=== PATIENT | female | born 1945 | race Caucasian/White ===

== ENCOUNTER 2019-07-29 12:54 | Outpatient (CLI) | payer MEDICARE, MEDICAID, SELFPAY ==
--- NOTE | ~2019-07-29 | US_ITS ---
CORRECTED REPORT order changed to [id number] corrected ordering doctor to Sg Pierre M.D. 07/29/2019 JM EXAMINATION: US aorta DATE: 07/29/2019 13:48 INDICATION: Abdominal aortic aneurysm. TECHNIQUE: Grayscale, color Doppler, and pulsed Doppler images of the aorta and common iliac arteries were obtained. COMPARISON: Ultrasound 07/26/2017, CT abdomen and pelvis 12/05/2018 FINDINGS: The aorta demonstrates a 4.1 x 4.0 cm fusiform infrarenal aneurysm. The common iliac arteries are normal in caliber. A stent graft is noted. IMPRESSION: 1. 4.1 cm fusiform infrarenal aortic aneurysm status post stent graft placement. The aneurysm measured 4.4 cm on 12/05/2018. Reviewed, dictated and finalized at location A. [employer] ARE[employer] MANAGER MTDD IMPRESSION: 1. 4.1 cm fusiform infrarenal aortic aneurysm status post stent graft placement . The aneurysm measured 4.4 cm on 12/05/2018.
== END 2019-07-29 12:55 | disposition home or self-care (01) ==
PROVIDERS: PCP Family Medicine
DX: I71.4 Abdominal aortic aneurysm, without rupture (principal)
CPT/HCPCS: 76775

== ENCOUNTER 2020-08-03 13:29 | Outpatient (CLI) | payer MEDICARE, MEDICAID, SELFPAY ==
--- NOTE | ~2020-08-03 | US_ITS ---
EXAMINATION: US aorta [facility] DATE: 08/03/2020 13:54 INDICATION: Abdominal aortic aneurysm TECHNIQUE: Grayscale, color Doppler, and pulsed Doppler images of the aorta and common iliac arteries were obtained. COMPARISON: 07/29/2019 FINDINGS: Maximum vascular dimensions are as follows: Proximal aorta: 2.9 cm Mid aorta: 2.5 cm Distal aorta: 4.2 cm Right common iliac artery: 1.7 cm Left common iliac artery: 1.6 cm There is a 4.2 x 3.9 cm fusiform aneurysm of the infrarenal abdominal aorta which previously measured 4.1 x 4 cm. IMPRESSION: 1. Stable fusiform infrarenal abdominal aortic aneurysm. Reviewed, dictated and finalized at location A. ILLMENT SPECIALIST
== END 2020-08-03 13:30 | disposition home or self-care (01) ==
PROVIDERS: PCP Family Medicine
DX: I71.4 Abdominal aortic aneurysm, without rupture (principal)
CPT/HCPCS: 76706

== ENCOUNTER 2020-10-09 07:00 | Emergency (ER) | payer MEDICARE, MEDICAID, SELFPAY ==
--- NOTE | ~2020-10-09 | XR_ITS ---
EXAMINATION: XR chest 2V DATE: 10/09/2020 08:14 INDICATION: Dyspnea TECHNIQUE: frontal and lateral views of the chest were obtained. COMPARISON: Chest radiograph dated 06/08/2018 FINDINGS: The lungs remain clear with no focal airspace opacities, pulmonary edema, pleural effusion or pneumot horax. The cardiomediastinal silhouette is normal. Calcified right hilar and mediastinal lymph nodes consistent with old granulomatous disease. Partially visualized abdominal aortic endovascular stent b eginning at the level of the thoracic hiatus and extending beyond the inferior margin of the field-of -view. Moderate thoracic spondylosis. IMPRESSION: 1. No acute cardiopulmonary disease. Reviewed, dictated and finalized at location A.
--- NOTE | ~2020-10-09 | CT_ITS ---
EXAMINATION: CTA chest PE protocol DATE: 10/09/2020 08:46 INDICATION: Shortness of breath TECHNIQUE: Computed tomography (CT) pulmonary angiogram of the chest was performed with 100 mL Omnipa que-350 intravenous contrast. Additional 3D reconstructions utilizing coronal maximum intensity proje ction (MIP) were performed. Automated exposure control and iterative reconstruction technique were em ployed. The dose-length product was 300.86 mGy-cm. COMPARISON: None FINDINGS: Excellent contrast opacification of the pulmonary arteries. There is mild streak artifact from dense contrast in the superior vena cava and right atrium. Mild scattered respiratory motion artifact which does not significantly limit evaluation. No pulmonary embolism. Mild emphysema. Unchanged small line ar band of discoid atelectasis/scarring in the anterobasilar segment of the right lower lobe. Unchang ed 5 mm likely noncalcified granuloma in the posterior basilar segment of the right lower lobe. A few additional unchanged tiny <3 mm calcified and noncalcified nodules in the right lower lobe likely se quela of chronic infection. No new airspace disease, pulmonary edema or pleural effusion. Heart size is normal. No pericardial effusion. Atherosclerotic coronary artery calcifications. Aortic valve calc ification. Normal caliber thoracic aorta with mild scattered atherosclerotic plaque and no dissection . Partially visualized abdominal aortic endoluminal stent beginning at the level of the thoracic hiat us between the level of the takeoff of the celiac axis and superior mesenteric artery. Calcified righ t hilar lymph nodes along with a few hepatic and splenic calcifications consistent with old granuloma tous disease. No pathologically enlarged thoracic lymphadenopathy. Cholecystectomy clips at the gallb ladder fossa. Moderate thoracic spondylosis. IMPRESSION: 1. No pulmonary embolus or other acute pulmonary disease. 2. Mild emphysema with stable appearance of scattered mild postinfectious residua. 3. Partially visualized abdominal aortic endoluminal stent grafting. Reviewed, dictated and finalized at location A. IMPRESSION: 1. No pulmonary embolus or other acute pulmonary disease. 2. Mild emphysema with stable appearance of scattered mild postinfectious resid ua. 3. Partially visualized abdominal aortic endoluminal stent grafting.
[2020-10-09 07:00] VITALS: BP 126/53; PULSE 85; RESP 20; TEMP 36.9; O2SAT 88
--- NOTE | 2020-10-09 07:08 | ED.SOB ---
HPI - SOB/Dyspnea General Chief Complaint: Shortness of Breath/Dyspnea Stated Complaint: ambulance Source: patient Mode of arrival: EMS Limitations: no limitations History of Present Illness HPI Narrative: patient states that she has had increasing shortness of breath for the last couple of weeks. She has not been able to sleep flat in her bed. She says that she has been having some chest pressure but that is mostly when she is laying flat or takes deep breaths. She continues to smoke 1 pack per day. She has had her COVID injections. She had influenza 3 weeks ago. MD elicited complaint: shortness of breath Onset (ago): week(s) (2 but got worse last PM) Timing: intermittent Severity: moderate Exacerbating factors: lying flat Relieving factors: nothing Associated symptoms: chest pain (pressure) Treatment prior to arrival: none Related Data Home oxygen amount: none Home Medications Medication Instructions Recorded Confirmed albuterol sulfate [Ventolin HFA] 2 puff INHALATION DIRECTED 10/09/20 10/09/20 alprazolam 0.5 mg PO BID PRN 10/09/20 10/09/20 atorvastatin 20 mg PO DAILY 10/09/20 10/09/20 bupropion HCl 150 mg PO DAILY 10/09/20 10/09/20 pantoprazole 20 mg PO DAILY 10/09/20 10/09/20 Allergies Allergy/AdvReac Type Severity Reaction Status Date / Time Penicillins Allergy Unknown Verified 10/09/20 07:22 Review of Systems Review of Systems: All systems reviewed & are unremarkable except as noted in HPI and below Constitutional: Constitutional: Denies chills and Denies fever(s) Eyes: Eyes: Reports no additional eye complaints Cardiovascular: Cardiovascular: Reports chest pain ( some chest pressure with deep breaths.), Denies lightheadedness and Denies palpitations Respiratory: Respiratory: Reports as per HPI Gastrointestinal: Gastrointestinal: Reports no additional gastrointestinal complaints, Denies nausea and Denies vomiting Musculoskeletal: Musculoskeletal: Reports no additional musculoskeletal complaints Integumentary/Breasts: Skin/Breast: Reports system reviewed and no additional complaints, except as docu PMFSH Past Medical History Medical History (Updated 10/09/20 @ 13:50 by Kota Ferris MD) GERD (gastroesophageal reflux disease) Hyperlipidemia Surgical History Surgical History (Updated 10/09/20 @ 13:49 by Kota Ferris MD) H/O endovascular stent graft for abdominal aortic aneurysm H/O hysterectomy with oophorectomy History of appendectomy History of bilateral tubal ligation Social History Social History (Updated 10/09/20 @ 13:50 by Kota Ferris MD) Smoking packs per day: 1 Smoking cigarettes per day: 20.0 Smoking status: Current every day smoker Tobacco type: cigarettes Alcohol intake: never Substance use: never Exam Const: General: healthy appearing, no acute distress and alert Nutritional Appearance: well nourished Orientation/consciousness: patient oriented x3 HENMT: Head: normal to inspection Ears: external ears normal Face and sinus: normal facial exam Mouth: Yes moist mucous membranes Eyes: Conjunctivae: conjunctivae normal Pupils: Equal, round and reactive pupils present EOM: EOMs intact bilaterally Neck: Neck: normal visual inspection Resp: Effort & Inspection: normal respiratory effort and able to speak in complete sentences Auscultation: wheezes expiratory wheezes and throughout ( Scattered) Cardio: Rate: regular rate Rhythm: regular rhythm GI: GI Palp: Yes Soft to palpation, No Tenderness to palpation present (GI) and No Guarding due to palpation present (GI) Auscultation: normal bowel sounds Back/Spine/Pelvis: Cervical Spine: cervical ROM normal Thoracic/Lumbar Spine: thoraco-lumbar ROM normal Skin: General skin exam: normal color Rashes: no rashes Neuro: General: patient oriented x3, moves all extremities, no meningeal signs and no focal motor deficits Speech: normal speech Gait exam (Neuro): Normal gait present Extrem: Gen
--- NOTE | 2020-10-09 07:09 | ECG_ITS ---
Measurements Intervals [place] Rate: 83 P: 36 WA: 144 QRS: 59 QRSD: 90 T: 83 QT: 344 QTc: 405 Interpretive Statements SINUS RHYTHM NONSPECIFIC ST & T-WAVE ABNORMALITY- HIGH LATERAL LEADS BASELINE ARTIFACT- I, II, III, AVR, AVL, AVF, V4 BORDERLINE ECG Electronically Signed On 10-09-2020 22:06:06 CDT by Kailash Goldberg D.O.
[2020-10-09 07:10] VITALS: O2SAT 95
[2020-10-09 07:34] LABS: Basophils Absolute Auto 0.04 K/mm3 (0.00-0.10); Basophils Percent Auto 0.4 % (0.0-1.0); Eosinophils Percent Auto 1.1 % (1.0-6.0); Hematocrit 41.1 % (35.0-42.0); Hemoglobin 13.4 g/dL (11.7-13.8); Immature Granulocyte Absolute 0.02 K/mm3 (0.00-0.00); Immature Granulocyte Percent A 0.2 % (0.0-0.0); Lymphocytes Absolute Auto 1.99 K/mm3 (1.10-4.50); Lymphocytes Percent Auto 21.1 % (18.0-42.0); Mean Corpuscular HGB Conc 32.6 g/dL (32.0-36.0); Mean Corpuscular Hemoglobin 31.9 pg (27.0-31.0); Mean Corpuscular Volume 97.9 fL (78.0-102.0); Mean Platelet Volume 9.7 fl (9.2-11.8); Monocytes Absolute Auto 0.64 K/mm3 (0.10-0.90); Monocytes Percent Auto 6.8 % (2.0-11.0); Neutrophils Absolute Auto 6.6 K/mm3 (1.7-7.2); Neutrophils Percent Auto 70.4 % (50.0-70.0); Platelet Count Result 269 K/mm3 (150-420); Red Cell Distribution Width 12.6 % (11.6-14.4); White Blood Count 9.4 K/mm3 (4.8-10.8)
[2020-10-09 07:50] LABS: Alanine Aminotransferase 22 U/L (14-59); Albumin Level 3.2 g/dL (3.4-5.0); Alkaline Phosphatase 84 U/L (46-116); Anion Gap 4 mmol/L (8-16); Aspartate Amino Transferase 11 U/L (15-37); Bilirubin,Total 0.3 mg/dL (0.00-1.00); Blood Urea Nitrogen 16 mg/dL (7-18); Calcium 9.2 mg/dL (8.5-10.1); Carbon Dioxide 33 mmol/L (21-32); Chloride 98 mmol/L (98-108); Estimated CRCL calculation 40 ml/min; Estimated Glomerular Filt Rate 57; Glucose 152 mg/dL (70-99); Magnesium 1.7 mg/dL (1.8-2.4); Osmolality Calculated 284 mOsm/kg (285-295); Potassium 3.9 mmol/L (3.5-5.1); Sodium 135 mmol/L (136-145); Total Protein 6.7 g/dL (6.4-8.2)
[2020-10-09 07:52] LABS: D Dimer 1.76 mg/L (0.19-0.50)
[2020-10-09 07:53] LABS: BNP 17.6 pg/mL (0-100)
--- NOTE | 2020-10-09 08:01 | PC.NURSE ---
report to GILLIAN Osorio
[2020-10-09 08:02] LABS: CRP 0.7 mg/dL (0.0-0.9)
[2020-10-09 08:49] VITALS: BP 126/78; PULSE 85; O2SAT 100
[2020-10-09] MEDS: methylPREDNISolone SOD SUCC 125 MG VIAL IV PUSH (09:45)
[2020-10-09] MEDS: IPRATROPIUM 0.5 MG/ALBUTEROL SULFATE 2.5 MG AMPUL.NEB 3 ML INHALATION (09:45)
[2020-10-09 09:50] VITALS: PULSE 85; RESP 17; O2SAT 100
[2020-10-09 10:02] VITALS: PULSE 86; O2SAT 99
[2020-10-09 10:25] VITALS: BP 125/72; O2SAT 99
== END 2020-10-09 10:26 | disposition home or self-care (01) ==
PROVIDERS: Emergency Provider Emergency Medicine
DX: J44.1 Chronic obstructive pulmonary disease with (acute) exacerbation (principal); K21.9 Gastro-esophageal reflux disease without esophagitis; E78.5 Hyperlipidemia, unspecified; F17.200 Nicotine dependence, unspecified, uncomplicated
CPT/HCPCS: 36415; 71046; 71275; 80053; 83735; 83880; 84484; 85025; 85380; 86140; 93005; 94640; 96374; 99283; 99284; J2930; Q9967

== ENCOUNTER 2021-11-08 13:04 | Emergency (ER) | payer OTHER, SELFPAY ==
[2021-11-08 13:20] VITALS: BP 132/85; PULSE 101; RESP 16; TEMP 35.9; O2SAT 93
--- NOTE | 2021-11-08 13:30 | ED.ANIMALBIT ---
HPI - Animal Bite General Chief Complaint: Animal Bite Stated Complaint: SPIDER BITE Time Seen by Provider: 11/08/21 13:32 Source: patient History of Present Illness HPI narrative: 76-year-old smoker with a history of COPD, AAA status post endovascular stent presents to the ER with -- left arm swelling measuring 5 cmX8 cm. itchy. She thinks is related to a bite. she 1st noticed it yesterday. No shortness of breath or lightheadedness. no other skin rash. patient is not up-to-date on tetanus immunization MD complaint: other ( Insect bite) Onset (ago): day(s) ( First noted yesterday) Animal: other ( insect bite) Location - Extremities: Left: arm Associated symptoms: none Related Data Patient tetanus UTD: No Home Medications Medication Instructions Recorded Confirmed albuterol sulfate [Ventolin HFA] 2 puff INHALATION DIRECTED 10/09/20 10/09/20 alprazolam 0.5 mg PO BID PRN 10/09/20 10/09/20 atorvastatin 20 mg PO DAILY 10/09/20 10/09/20 bupropion HCl 150 mg PO DAILY 10/09/20 10/09/20 pantoprazole 20 mg PO DAILY 10/09/20 10/09/20 Allergies Allergy/AdvReac Type Severity Reaction Status Date / Time Penicillins Allergy Swelling Verified 11/08/21 13:22 Review of Systems Review of Systems: All systems reviewed & are unremarkable except as noted in HPI and below Constitutional: Constitutional: Reports as per HPI and Reports no additional constitutional complaints Eyes: Eyes: Reports as per HPI and Reports no additional eye complaints ENT: Reports system reviewed and no additional complaints, except as documented and Reports as per HPI Cardiovascular: Cardiovascular: Reports as per HPI and Reports no additional cardiovascular complaints Respiratory: Respiratory: Reports as per HPI, Reports no additional respiratory complaints, Reports cough and Reports dyspnea Gastrointestinal: Gastrointestinal: Reports as per HPI and Reports no additional gastrointestinal complaints Genitourinary: Genitourinary: Reports no additional female genitourinary complaints Musculoskeletal: Musculoskeletal: Reports no additional musculoskeletal complaints and Reports as per HPI Integumentary/Breasts: Comments: left arm swelling, redness and itching Neurologic: Reports system reviewed and no additional complaints, except as documented and Reports as per HPI Psychiatric: Psychiatric: Reports no additional psychiatric complaints and Reports as per HPI Endocrine: Endocrine: Reports no additional endocrine complaints and Reports as per HPI Hematologic/Lymphatic: Hematologic/Lymphatic: Reports no additional hematologic/lymphatic complaints and Reports as per HPI Allergic/Immunologic: Allergic/Immunologic: Reports no additional allergic/immunologic complaints and Reports as per HPI [facility] Past Medical History Medical History GERD (gastroesophageal reflux disease) Hyperlipidemia Surgical History Surgical History H/O endovascular stent graft for abdominal aortic aneurysm H/O hysterectomy with oophorectomy History of appendectomy History of bilateral tubal ligation Social History Social History Smoking packs per day: 1 Smoking cigarettes per day: 20.0 Smoking status: Current every day smoker Tobacco type: cigarettes Alcohol intake: never Substance use: never Exam Const: General: no acute distress and alert Orientation/consciousness: patient oriented x3 HENMT: Head: normal to inspection Face and sinus: normal facial exam Eyes: Conjunctivae: conjunctivae normal Pupils: Equal, round and reactive pupils present EOM: EOMs intact bilaterally Neck: Neck: normal visual inspection and no lymphadenopathy Chest: Chest palpation & inspection: normal inspection of the chest Resp: Auscultation: rhonchi and diminished lung sounds Cardio: Rate: regular ra
[2021-11-08] MEDS: methylPREDNISolone SOD SUCC 125 MG VIAL 40 MG IM (13:49)
[2021-11-08] MEDS: TETANUS,DIPHTHERIA,AC PERTUSSIS ADULT 0.5 ML (ADACEL) IM (13:50)
[2021-11-08 13:56] VITALS: BP 132/85; PULSE 101; RESP 16; TEMP 35.9; O2SAT 93
== END 2021-11-08 14:03 | disposition home or self-care (01) ==
PROVIDERS: Emergency Provider Internal Medicine Critical Care Medicine; PCP Family Medicine
DX: S40.862A Insect bite (nonvenomous) of left upper arm, initial encounter (principal); W57.XXXA Bitten or stung by nonvenomous insect and other nonvenomous arthropods, initial encounter
CPT/HCPCS: 90471; 90715; 96372; 99283; J2930

== ENCOUNTER 2022-06-11 07:52 | Emergency (ER) | payer OTHER, SELFPAY ==
[2022-06-11] VITALS (26 sets, daily range): BP systolic 126–179; BP diastolic 67–96; PULSE 82–97; RESP 16; TEMP 36.2–36.3; O2SAT 90–96
--- NOTE | ~2022-06-11 | XR_ITS ---
EXAMINATION: XR abdomen/kub 1V DATE: 06/11/2022 08:16 INDICATION: Constipation. TECHNIQUE: A supine view of the abdomen was obtained. COMPARISON: CT abdomen and pelvis 12/05/2018 FINDINGS: There are no dilated loops of bowel. There is a moderate volume of stool in the colon. Surg ical clips in the right upper quadrant are likely from cholecystectomy. There is a stent graft in abd ominal aorta and the common iliac arteries. There is a phlebolith in right pelvis. IMPRESSION: 1. Nonobstructive bowel gas pattern. Reviewed, dictated and finalized at location A. K MASON
--- NOTE | ~2022-06-11 | CT_ITS ---
EXAMINATION: CT abdomen pelvis wo con DATE: 06/11/2022 10:45 INDICATION: Left flank pain. Left lower quadrant abdominal pain. TECHNIQUE: Computed tomography (CT) of the abdomen and pelvis was performed without intravenous contr ast. Automated exposure control and iterative reconstruction technique were employed. The dose-length product was 388.37 mGy-cm. COMPARISON: CT abdomen and pelvis 12/05/2018 FINDINGS: The visualized portions of the lung bases demonstrate mild atelectasis. Emphysema is noted. No pleural effusion. The heart size is normal. No pericardial effusion. Calcifications in the liver and spleen are consistent with old granulomatous disease. There are changes of cholecystectomy. The p ancreas, adrenal glands, and right kidney are normal. There is a 4.4 cm cyst in left kidney. There is no urolithiasis. There is diverticulosis of the colon without evidence of diverticulitis. There are no dilated loops of bowel. The appendix is not visualized. There is a 4.0 cm fusiform aneurysm of inf rarenal aorta with stent graft in the aorta and common iliac arteries. There are no pathologically en larged lymph nodes. There is no free intraperitoneal fluid. There is a supraumbilical ventral hernia containing fat. There is mild thoracolumbar spondylosis. IMPRESSION: 1. No urolithiasis. 2. 4.0 cm fusiform aneurysm of infrarenal aorta with stent graft in expected position, improved from 4.4 cm on 12/05/2018. 3. Supraumbilical ventral hernia containing fat. Reviewed, dictated and finalized at location A. IFIED HEALTH EDUCATION SPECIALIST IMPRESSION: 1. No urolithiasis. 2. 4.0 cm fusiform aneurysm of infrarenal aorta with stent graft in expected po sition, improved from 4.4 cm on 12/05/2018. 3. Supraumbilical ventral hernia containing fat.
--- NOTE | 2022-06-11 07:53 | ED.ABDPAIN ---
HPI - Abdominal Pain General Chief Complaint: Urogenital-Female Stated Complaint: Ambulance Time Seen by Provider: 06/11/22 07:53 Source: patient, EMS and RN notes reviewed Mode of arrival: EMS Limitations: no limitations History of Present Illness HPI narrative: patient states that she has had left flank pain in left lower quadrant abdominal pain for the last 3 days. She has not had a bowel movement in 2 days. She denies any fever chills. She denies any nausea vomiting. MD elicited complaint: flank pain Pertinent past history: none Onset (ago): day(s) (3) Pain Consistency: intermittent Location: L flank Severity: severe Quality: stabbing and sharp Radiation: LLQ Migration to: no migration Exacerbating factors: eating Relieving factors: nothing Associated symptoms: constipation (2 days) Related Data Home Medications Medication Instructions Recorded Confirmed albuterol sulfate 90 mcg/actuation 2 puff inhalation DIRECTED 10/09/20 10/09/20 aerosol inhaler (Ventolin HFA) alprazolam 0.5 mg tablet 0.5 mg PO BID PRN Anxiety 10/09/20 10/09/20 atorvastatin 20 mg tablet 20 mg PO DAILY 10/09/20 10/09/20 bupropion HCl 150 mg 24 hr tablet, 150 mg PO DAILY 10/09/20 10/09/20 extended release pantoprazole 20 mg tablet,delayed 20 mg PO DAILY 10/09/20 10/09/20 release Allergies Allergy/AdvReac Type Severity Reaction Status Date / Time Penicillins Allergy Swelling Verified 06/11/22 08:05 soybean Allergy Hives Verified 06/11/22 08:05 aspirin AdvReac Abdominal Verified 06/11/22 08:05 Pain Review of Systems Review of Systems: All systems reviewed & are unremarkable except as noted in HPI and below Constitutional: Constitutional: Denies chills and Denies fever(s) PMFSH Past Medical History Medical History (Updated 06/11/22 @ 11:29 by Kota Ferris MD) COPD (chronic obstructive pulmonary disease) GERD (gastroesophageal reflux disease) Hyperlipidemia Overactive bladder Surgical History Surgical History H/O endovascular stent graft for abdominal aortic aneurysm H/O hysterectomy with oophorectomy History of appendectomy History of bilateral tubal ligation Social History Social History Smoking packs per day: 1 Smoking cigarettes per day: 20.0 Smoking status: Current every day smoker Tobacco type: cigarettes Alcohol intake: never Substance use: never Exam Const: General: healthy appearing, no acute distress and alert Nutritional Appearance: well nourished Orientation/consciousness: patient oriented x3 Limitations: no limitations HENMT: Head: normal to inspection Ears: external ears normal Face and sinus: normal facial exam Mouth: Yes moist mucous membranes Eyes: Conjunctivae: conjunctivae normal EOM: EOMs intact bilaterally Neck: Neck: normal visual inspection Resp: Effort & Inspection: normal respiratory effort Auscultation: clear to auscultation bilaterally Cardio: Rate: regular rate Rhythm: regular rhythm GI: GI Palp: Yes Soft to palpation, Yes Tenderness to palpation present (GI) ( left side mild) and No Guarding due to palpation present (GI) Auscultation: normal bowel sounds Back/Spine/Pelvis: Back: CVA tenderness ( moderate on the left) Cervical Spine: cervical ROM normal Thoracic/Lumbar Spine: thoraco-lumbar ROM normal Skin: General skin exam: normal color Neuro: General: patient oriented x3, moves all extremities, no focal motor deficits and CN's II-XI intact bilaterally Speech: normal speech Gait exam (Neuro): Normal gait present Extrem: General: normal to inspection and no clubbing, cyanosis or edema Psych: Mental Status: mental status grossly normal Affect: normal affect Attitude: cooperative Course Vital Signs Vital signs: Vital Signs Temperature 36.2 C L 06/11/22 07:57 Pulse Rate 95 06/11/22 07:57 Respiratory Rate 16 06/11/22 07:5
[2022-06-11 08:08] LABS: Basophils Absolute Auto 0.05 K/mm3 (0.00-0.10); Basophils Percent Auto 0.5 % (0.0-1.0); Eosinophils Absolute Auto 0.13 K/mm3 (0.02-0.50); Eosinophils Percent Auto 1.2 % (1.0-6.0); Hemoglobin 12.3 g/dL (11.7-13.8); Immature Granulocyte Absolute 0.04 K/mm3 (0.00-0.00); Immature Granulocyte Percent A 0.4 % (0.0-0.0); Lymphocytes Absolute Auto 2.13 K/mm3 (1.10-4.50); Lymphocytes Percent Auto 19.5 % (18.0-42.0); Mean Corpuscular HGB Conc 34.2 g/dL (32.0-36.0); Mean Corpuscular Hemoglobin 32.5 pg (27.0-31.0); Mean Platelet Volume 9.7 fl (9.2-11.8); Monocytes Absolute Auto 0.84 K/mm3 (0.10-0.90); Monocytes Percent Auto 7.7 % (2.0-11.0); Neutrophils Absolute Auto 7.7 K/mm3 (1.7-7.2); Neutrophils Percent Auto 70.7 % (50.0-70.0); Platelet Count Result 264 K/mm3 (150-420); Red Blood Count 3.79 M/mm3 (4.20-5.40); Red Cell Distribution Width 12.1 % (11.6-14.4); White Blood Count 10.9 K/mm3 (4.8-10.8)
--- NOTE | 2022-06-11 08:10 | PC.NURSE ---
Xray at bedside
--- NOTE | 2022-06-11 08:20 | PC.NURSE ---
Urine delivered to lab.
[2022-06-11 08:23] LABS: Alanine Aminotransferase 19 U/L (14-59); Albumin Level 3.3 g/dL (3.4-5.0); Alkaline Phosphatase 80 U/L (46-116); Anion Gap 5 mmol/L (8-16); Aspartate Amino Transferase 11 U/L (15-37); Bilirubin,Total 0.2 mg/dL (0.00-1.00); Blood Urea Nitrogen 14 mg/dL (7-18); Carbon Dioxide 31 mmol/L (21-32); Chloride 101 mmol/L (98-108); Estimated CRCL calculation 33 ml/min; Estimated Glomerular Filt Rate 48; Glucose 157 mg/dL (70-99); Lipase 31 U/L (16-77); Osmolality Calculated 287 mOsm/kg (285-295); Potassium 4.2 mmol/L (3.5-5.1); Sodium 137 mmol/L (136-145); Total Protein 6.9 g/dL (6.4-8.2)
[2022-06-11 08:25] LABS: Lactic Acid Reflex 1.4 mmol/L (0.4-2.0)
[2022-06-11 08:26] LABS: CRP < 0.5 mg/dL (0.0-0.9)
[2022-06-11 08:28] LABS: Add Urine Microscopic? NO; Appearance Urine Clear (Clear); Bilirubin Urine Negative (Negative); Blood Urine Negative (Negative); Color Urine Yellow (Yellow); Glucose Urine UA Negative (Negative); Ketones Urine Negative (Negative); Leukocyte Esterase Ur Negative LEU/UL (Negative); Nitrate Urine Negative (Negative); Protein Urine Negative (Negative); Specific Grav Ur >= 1.030 (1.010-1.020); Urobilinogen Urine 0.2 mg/dL (0.2-1.0)
[2022-06-11] MEDS: KETOROLAC 15 MG/ML VIAL (*BKC) IV PUSH (08:45)
--- NOTE | 2022-06-11 11:04 | PC.NURSE ---
Spoke with Acacia, patient's daughter, with permission of patient. Phone number: [phone]
== END 2022-06-11 11:53 | disposition home or self-care (01) ==
PROVIDERS: Emergency Provider Emergency Medicine
DX: K59.00 Constipation, unspecified (principal); E78.5 Hyperlipidemia, unspecified; J44.9 Chronic obstructive pulmonary disease, unspecified; F17.210 Nicotine dependence, cigarettes, uncomplicated
CPT/HCPCS: 36415; 74018; 74176; 80053; 81003; 83605; 83690; 85025; 86140; 96374; 99284; J1885

== ENCOUNTER 2022-06-17 07:05 | Emergency (ER) | payer OTHER, SELFPAY ==
--- NOTE | ~2022-06-17 | CT_ITS ---
EXAMINATION: CT abd pelvis lumbar wo con DATE: 06/17/2022 07:57 INDICATION: Back pain TECHNIQUE: Computed tomography (CT) of the abdomen, pelvis and lumbar spine was performed without int ravenous contrast. Automated exposure control and iterative reconstruction technique were employed. T he dose-length product was 376.90 mGy-cm. COMPARISON: 06/11/2022 FINDINGS: Abdomen and pelvis: Mild bibasilar atelectasis. No pericardial or pleural effusion. Hepatic and splenic calcific lesions consistent with old granulomatous disease. Cholecystectomy clips the gallbladder fossa. Pancreas, rig ht adrenal gland and bilateral adrenal glands are normal. Unchanged 4.4 cm left renal cyst. Additiona l subcentimeter hypodense proteinaceous/hemorrhagic cyst in the left kidney. Fusiform infrarenal abdo hiram aortic aneurysm which measures up to 4.0 x 3.7 cm in maximal diameter with aortobiiliac endolum inal stent which begins at the level of the celiac axis and extends to the bifurcation of the common iliac arteries. There is moderate colonic diverticulosis with a sigmoid predominance. There is no ad jacent inflammatory change to suggest diverticulitis. There is some fluid in the proximal colon consi stent with diarrhea. The appendix is not visualized. No pericecal inflammatory change to suggest acut e appendicitis. Small bowel is normal with no obstruction. Bladder is normal. The uterus is not ident ified and has likely been surgically resected. No free intraperitoneal gas or fluid. No pathologicall y enlarged abdominal or pelvic lymphadenopathy. Small fat-containing supraumbilical ventral hernia. Lumbar spine: Alignment is normal. Unchanged minimal likely physiologic anterior wedging at T11 and T12. Lumbar leelee tebral body heights are normal. Mild disc height loss at T10-T11 and L2-L3. There are disc bulges res ulting in mild central canal stenosis at L2-L3 through L5-S1. Severe facet osteoarthritis bilaterally at L4-L5 and on the left at L5-S1. Mild facet osteoarthritis at T10-T11 through T12-L1 and moderate facet osteoarthritis the remaining lumbar facet joints neural foraminal stenosis, moderate on the lef t at L3-L4 and bilaterally at L5-S1 lumbar levels. IMPRESSION: 1. Fluid throughout the proximal colon consistent with diarrhea. Correlate clinically for enteritis. No urolithiasis or other acute intra-abdominal/pelvic process. 2. Unchanged 4.0 cm fusiform infrarenal abdominal aortic aneurysm with expected appearance of an aort obiiliac endoluminal stent graft. 3. Mild lumbar spondylosis without acute osseous abnormality. 4. Small supraumbilical fat-containing ventral hernia. Reviewed, dictated and finalized at location A. EXPERT IMPRESSION: 1. Fluid throughout the proximal colon consistent with diarrhea. Correlate clin ically for enteritis. No urolithiasis or other acute intra-abdominal/pelvic pro cess. 2. Unchanged 4.0 cm fusiform infrarenal abdominal aortic aneurysm with expected appearance of an aortobiiliac endoluminal stent graft. 3. Mild lumbar spondylosis without acute osseous abnormality. 4. Small supraumbilical fat-containing ventral hernia.
[2022-06-17 07:06] VITALS: BP 183/74; PULSE 84; RESP 16; TEMP 36.4; O2SAT 95
--- NOTE | 2022-06-17 07:18 | ED.GENADULT ---
HPI - General Adult General Chief complaint: Back Pain/Injury Stated complaint: AMBULANCE Time Seen by Provider: 06/17/22 07:11 History of Present Illness HPI narrative: Keshia is a 76F with a PMH of GERD, HLD, COPD that presented to the ED with left low back pain by EMS. She started having back pain a little over a week ago. It is a stabbing left low back/flank pain that is non-radiating. She was seen in the ED here on 06/11 and diagnosed with constipation. She has taken laxatives and had a small BM. She denies loss of bowel/bladder control, vomiting, fevers, CP, dyspnea, dysuria and hematuria. Related Data Home Medications Medication Instructions Recorded Confirmed albuterol sulfate 90 mcg/actuation 2 puff inhalation DIRECTED 10/09/20 06/17/22 aerosol inhaler (Ventolin HFA) alprazolam 0.5 mg tablet 0.5 mg PO BID PRN Anxiety 10/09/20 06/17/22 atorvastatin 20 mg tablet 20 mg PO DAILY 10/09/20 06/17/22 bupropion HCl 150 mg 24 hr tablet, 150 mg PO DAILY 10/09/20 06/17/22 extended release pantoprazole 20 mg tablet,delayed 20 mg PO DAILY 10/09/20 06/17/22 release Allergies Allergy/AdvReac Type Severity Reaction Status Date / Time erythromycin base [Eryc] Allergy Intermediate Verified 06/11/22 15:39 sertraline [Zoloft] Allergy Intermediate Verified 06/11/22 15:39 Penicillins Allergy Swelling Verified 06/11/22 15:39 soybean Allergy Hives Verified 06/11/22 15:39 aspirin AdvReac Abdominal Verified 06/11/22 15:39 Pain Review of Systems Review of Systems: All systems reviewed & are unremarkable except as noted in HPI and below PMFSH Past Medical History Medical History COPD (chronic obstructive pulmonary disease) GERD (gastroesophageal reflux disease) Hyperlipidemia Overactive bladder Surgical History Surgical History H/O endovascular stent graft for abdominal aortic aneurysm H/O hysterectomy with oophorectomy History of appendectomy History of bilateral tubal ligation Family History Family History Sister Family history of type 2 diabetes mellitus Social History Social History Smoking packs per day: 1 Smoking cigarettes per day: 20.0 Smoking status: Current every day smoker Tobacco type: cigarettes Alcohol intake: never Substance use: never Exam Const: General: healthy appearing and alert Other: was originally leaning over the bed afte she got off the stretcher HENMT: Head: normal to inspection Ears: external ears normal Face/Nose/Sinus: Normal external nose present Mouth: Yes Normal oral and palatal mucosa present and Yes moist mucous membranes Eyes: Conjunctivae: conjunctivae normal Pupils: Equal, round and reactive pupils present Neck: Neck: normal visual inspection Chest: Chest palpation & inspection: normal inspection of the chest Resp: Effort & Inspection: normal respiratory effort Auscultation: clear to auscultation bilaterally Cardio: Rate: regular rate Rhythm: regular rhythm GI: Inspection: non-distended GI Palp: Yes Soft to palpation Auscultation: normal bowel sounds : Other: left sided CVA tenderness Skin: General skin exam: normal color Neuro: General: patient oriented x3 and moves all extremities Cranial nerves: Yes Nystagmus not present Extrem: General: normal to inspection Psych: Mental Status: mental status grossly normal Course Course Emergency Course: Orderd labs, CT and gave toradol for pain Labs showed a slightly elevated WBC, and chemistries showed a slightly decreased GFR at 56. Preliminary CT showed CT abd&pelvis showed possible enterocolitis, possible non-obstructing bilateral distal ureteral punctate stones versus adjacent extra ureteral calcifications with no other acute abnormality CT lumbar spin
[2022-06-17] MEDS: KETOROLAC 30 MG/ML VIAL (*BKC) IV PUSH (07:30)
[2022-06-17 07:36] LABS: Basophils Absolute Auto 0.06 K/mm3 (0.00-0.10); Basophils Percent Auto 0.5 % (0.0-1.0); Eosinophils Absolute Auto 0.09 K/mm3 (0.02-0.50); Eosinophils Percent Auto 0.8 % (1.0-6.0); Hematocrit 35.9 % (35.0-42.0); Hemoglobin 12.1 g/dL (11.7-13.8); Immature Granulocyte Absolute 0.05 K/mm3 (0.00-0.00); Immature Granulocyte Percent A 0.4 % (0.0-0.0); Lymphocytes Absolute Auto 2.05 K/mm3 (1.10-4.50); Lymphocytes Percent Auto 18.1 % (18.0-42.0); Mean Corpuscular HGB Conc 33.7 g/dL (32.0-36.0); Mean Corpuscular Hemoglobin 32.3 pg (27.0-31.0); Mean Corpuscular Volume 95.7 fL (78.0-102.0); Mean Platelet Volume 9.5 fl (9.2-11.8); Monocytes Absolute Auto 0.76 K/mm3 (0.10-0.90); Monocytes Percent Auto 6.7 % (2.0-11.0); Neutrophils Absolute Auto 8.3 K/mm3 (1.7-7.2); Neutrophils Percent Auto 73.5 % (50.0-70.0); Platelet Count Result 272 K/mm3 (150-420); Red Blood Count 3.75 M/mm3 (4.20-5.40); Red Cell Distribution Width 12.3 % (11.6-14.4); White Blood Count 11.3 K/mm3 (4.8-10.8)
--- NOTE | 2022-06-17 07:43 | PC.NURSE ---
pt to xray per stretcher.
[2022-06-17 07:50] LABS: Alanine Aminotransferase 16 U/L (14-59); Albumin Level 3.4 g/dL (3.4-5.0); Alkaline Phosphatase 71 U/L (46-116); Anion Gap 5 mmol/L (8-16); Aspartate Amino Transferase 13 U/L (15-37); Bilirubin,Total 0.3 mg/dL (0.00-1.00); Blood Urea Nitrogen 15 mg/dL (7-18); Calcium 8.6 mg/dL (8.5-10.1); Carbon Dioxide 31 mmol/L (21-32); Chloride 98 mmol/L (98-108); Estimated CRCL calculation 37 ml/min; Estimated Glomerular Filt Rate 56; Glucose 138 mg/dL (70-99); Lipase 30 U/L (16-77); Osmolality Calculated 280 mOsm/kg (285-295); Potassium 4.4 mmol/L (3.5-5.1); Sodium 134 mmol/L (136-145); Total Protein 6.8 g/dL (6.4-8.2)
[2022-06-17 07:52] LABS: Lactic Acid Reflex 1.3 mmol/L (0.4-2.0)
[2022-06-17] MEDS: CYCLOBENZAPRINE HCL 10 MG TABLET PO (08:08)
[2022-06-17] MEDS: MORPHINE SULFATE (*CRX) 4 MG/ML INJ IV PUSH (08:10)
[2022-06-17 08:22] LABS: Add Urine Microscopic? NO; Appearance Urine Clear (Clear); Bilirubin Urine Negative (Negative); Blood Urine Negative (Negative); Color Urine Light Yellow (Yellow); Glucose Urine UA Negative (Negative); Ketones Urine Negative (Negative); Leukocyte Esterase Ur Negative LEU/UL (Negative); Nitrate Urine Negative (Negative); Protein Urine Negative (Negative); Specific Grav Ur 1.025 (1.010-1.020); Urobilinogen Urine 0.2 mg/dL (0.2-1.0)
[2022-06-17 08:26] LABS: Amphetamine Screen Urine Negative (Negative); Barbiturate Screen Urine Negative (Negative); Benzodiazepines Screen Urine Positive (Negative); Cannabinoid Screen Urine Negative (Negative); Cocaine Screen Urine Negative (Negative); Methadone Screen Urine Negative (Negative); Opiate Screen Urine Negative (Negative); Phencyclidine Screen Urine Negative (Negative)
--- NOTE | 2022-06-17 09:29 | PC.NURSE ---
spoke with daughter, mary , will call pt paperhanger assistant to pick mother up. awaiting arrival.
[2022-06-17 09:32] VITALS: BP 148/94; PULSE 78; RESP 20; TEMP 36.6; O2SAT 93
== END 2022-06-17 09:33 | disposition home or self-care (01) ==
PROVIDERS: Emergency Provider Family Medicine; PCP Family Medicine
DX: N20.1 Calculus of ureter (principal); M54.50 Low back pain, unspecified; J44.9 Chronic obstructive pulmonary disease, unspecified; E78.5 Hyperlipidemia, unspecified; F17.210 Nicotine dependence, cigarettes, uncomplicated; Z79.899 Other long term (current) drug therapy
CPT/HCPCS: 36415; 72131; 74176; 80053; 80307; 81003; 83605; 83690; 85025; 96374; 96375; 99284; A9270; J1885; J2270

== ENCOUNTER 2022-06-27 14:34 | Outpatient (CLI) | payer OTHER, SELFPAY ==
[2022-06-27 14:52] LABS: Hematocrit 36.6 % (35.0-42.0); Hemoglobin 12.5 g/dL (11.7-13.8); Mean Corpuscular HGB Conc 34.2 g/dL (32.0-36.0); Mean Corpuscular Hemoglobin 32.6 pg (27.0-31.0); Mean Corpuscular Volume 95.3 fL (78.0-102.0); Mean Platelet Volume 9.2 fl (9.2-11.8); Platelet Count Result 277 K/mm3 (150-420); Red Blood Count 3.84 M/mm3 (4.20-5.40); Red Cell Distribution Width 12.3 % (11.6-14.4); White Blood Count 12.5 K/mm3 (4.8-10.8)
[2022-06-27 15:07] LABS: Alanine Aminotransferase 13 U/L (14-59); Albumin Level 3.7 g/dL (3.4-5.0); Alkaline Phosphatase 73 U/L (46-116); Anion Gap 6 mmol/L (8-16); Aspartate Amino Transferase 11 U/L (15-37); Bilirubin,Total 0.4 mg/dL (0.00-1.00); Blood Urea Nitrogen 9 mg/dL (7-18); Carbon Dioxide 29 mmol/L (21-32); Chloride 97 mmol/L (98-108); Cholesterol 285 mg/dL (0-200); Estimated Glomerular Filt Rate 53; Glucose 118 mg/dL (70-99); HDL Direct 47 mg/dL (40-60); LDL Cholesterol Calculated 174 mg/dL (<130); Osmolality Calculated 273 mOsm/kg (285-295); Potassium 4.3 mmol/L (3.5-5.1); Sodium 132 mmol/L (136-145); Total Protein 7.3 g/dL (6.4-8.2); Triglycerides 321 mg/dL (0-150)
== END 2022-06-27 14:35 | disposition home or self-care (01) ==
PROVIDERS: PCP Family Medicine; Visit Provider Family Medicine
DX: K21.9 Gastro-esophageal reflux disease without esophagitis (principal); E78.5 Hyperlipidemia, unspecified; N20.1 Calculus of ureter
CPT/HCPCS: 36415; 80053; 80061; 82365; 85027; 88300

== ENCOUNTER 2022-08-01 12:54 | Outpatient (CLI) | payer OTHER, SELFPAY ==
--- NOTE | ~2022-08-01 | US_ITS ---
Ultrasound of the Abdominal Aorta INDICATION: Abdominal aortic aneurysm TECHNIQUE: Grayscale, color Doppler, and pulsed Doppler images of the aorta and common iliac arteries were obtained. COMPARISON: 08/03/2020 FINDINGS: Maximum vascular dimensions are as follows: Proximal aorta: 3.6 cm Mid aorta: 4.1 cm Distal aorta: 4.9 cm Right common iliac artery: 1.9 cm Left common iliac artery: 1.6 cm Overall, probably no change from prior exam. IMPRESSION: Fusiform abdominal aortic aneurysm is mildly increased in size from prior exam, now measuring up to 4 .9 cm in maximum diameter Reviewed, dictated and finalized at location . CE SYSTEM ANALYST IMPRESSION: Fusiform abdominal aortic aneurysm is mildly increased in size from prior exam, now measuring up to 4.9 cm in maximum diameter
== END 2022-08-01 12:55 | disposition home or self-care (01) ==
LOC: CHSIMG 12:59
DX: I71.40 Abdominal aortic aneurysm, without rupture, unspecified (principal)
CPT/HCPCS: 76775

== ENCOUNTER 2025-04-08 10:07 | Emergency (ER) | payer OTHER, MEDICARE, SELFPAY ==
[2025-04-08] VITALS (13 sets, daily range): BP systolic 93–131; BP diastolic 43–91; PULSE 64–78; RESP 16–20; TEMP 36.4–36.6; O2SAT 99–100
--- NOTE | ~2025-04-08 | XR_ITS ---
EXAMINATION: XR chest 1V portable DATE: 04/08/2025 11:00 INDICATION: Shortness of breath TECHNIQUE: frontal view of the chest was obtained. COMPARISON: Chest radiograph and CT dated 10/09/2020 FINDINGS: Lungs appear hyperexpanded likely due to lordotic plane of imaging. No focal airspace opacities, pulmonary edema, pleural effusion or pneumothorax. The cardiomediastinal silhouette is normal. IMPRESSION: 1. No acute cardiopulmonary disease. Reviewed, dictated and finalized at location A.
--- NOTE | 2025-04-08 10:20 | ED_ITS ---
HPI - SOB/Dyspnea General Chief Complaint: Shortness of Breath/Dyspnea Stated Complaint: shortness of breath Time Seen by Provider: 04/08/25 10:10 History of Present Illness HPI Narrative: 79-year-old white female with history of COPD, hypertension, hyperlipidemia, GERD, long-standing tobacco use, home oxygen dependent on 2 L nasal cannula 24 hours a day presents with about a week-long history of increasing shortness of breath, some swelling in her lower extremities, some dyspnea on exertion, and a little bit of a cough the last few days. She is evasive when asked how much she smokes and finely answered that she has gone a long way down to 3 packs a day and now is down to ?just 1 cigarette a day?. She reports that her doctor does not know that she has COPD and that she just found out. However she has been on home oxygen for several years and her doctor is who is prescribing her various inhalers and other medications. She denies any recent sinus drainage sore throat, denies palpitations near syncope or syncope. Denies any chest pain, abdominal pain, nausea or vomiting diarrhea or constipation, dysuria urgency or frequency. Related Data Home Medications ?Medication ?Instructions ?Recorded ?Confirmed ?Last Taken ?Type pantoprazole 20 mg tablet,delayed 20 mg PO DAILY 10/0904/30/25 Unknown History release atorvastatin 20 mg tablet 20 mg PO QHS 04/30/25 Unknown History fluticasone fur. 200 mcg-umeclid 1 inh inhalation TIMBO Y 04/30/25 04/30/25 Unknown History 62.5 mcg-vilant 25 mcg inhalat.powder (Trelegy Ellipta) Allergies Allergy/AdvReac Type Severity Reaction Status Date / Time erythromycin base (Eryc) Allergy Intermediate unknown Verified 04/30/25 11:31 sertraline (Zoloft) Allergy Intermediate Unknown Verified 04/30/25 11:31 Penicillins Allergy Swelling Verified 04/30/25 11:31 soybean Allergy Hives Verified 04/30/25 11:31 aspirin AdvReac Abdominal Verified 04/30/25 11:31 Pain Review of Systems 2 Review of Systems: ROS is negative except as in HPI PMFSH Past Medical History Medical History (Updated 04/30/25 @ 19:31 by Leobardo Moses APRN) Tonsillectomy planned Hysterectomy planned Abdominal aneurysm Rheumatic fever without heart involvement H/O renal calculi Overactive bladder COPD (chronic obstructive pulmonary disease) GERD (gastroesophageal reflux disease) Hyperlipidemia Surgical History Surgical History History of appendectomy H/O hysterectomy with oophorectomy History of bilateral tubal ligation H/O endovascular stent graft for abdominal aortic aneurysm Family History Family History (Updated 04/30/25 @ 11:54 by Leobardo Moses APRN) Sister Family history of type 2 diabetes mellitus Mother Throat cancer Father Heart disease Heart attack Social History Social History Smoking packs per day: 1 Smoking cigarettes per day: 20.0 Smoking status: Current every day smoker Tobacco type: cigarettes Alcohol intake: never Substance use: never Lack of Transportation: No Lack of Food: Never True Current Housing: I Have Housing Concerned About Future Housing: No Difficulty Paying Gas/Electric Bills: No Difficulty Paying for Meds: No Currently Unemployed: No Education: Grade School Difficulty w/ Childcare or Family Care: Decline to Answer Gender identity (if verbalized by the patient): Female Exam 2 Narrative: Patient is awake, alert, well oriented, very talkative, talks in long sentences, and a lot of sentences and a row. Requires frequent redirecting, she also does lodges her oxygen nasal cannula frequently and gets irritated with us when we repositioned it or [place] that it is not in place. He she is also frequently [place] answering our questions and requires frequent redirecting, frequent specific instructions to ?answer the question that I asked? She has skin changes consistent with longstanding tobacco use, she has coarse breath sounds bilateral with minimal scattered wheezes, heart is RRR with a marked 2/6 systolic ejection murmur lower extremities have trace pitting edema with marked dry skin. Const: General: cooperative, comfortable, no acute distress, well developed, alert, awake and Physically active Orientation/consciousness: patient oriented x3 Other: Patient overall is very negative in everything she says, she rates her primary care doctor, per [facility] lung doctor, which tells us how they are ?just pill pressures? and do not know what they are doing. She reports she was never told she had COPD in till this past week. Reports she has never been on any kind of water pill and this past week when she got started on ACT see. However her doctor he is the 1 who ordered her home oxygen, is the 1 who ordered her various medications including the inhalers. There is relatively strong odor of tobacco which seems inconsistent with ?just 1 cigarette per day? HENMT: Head: normal to inspection, normocephalic and atraumatic Ears: h earing grossly normal bilaterally and external ears normal Face/Nose/Sinus: N ormal external nose present, Normal nares present, Normal nasal mucous membranes and turbinates present and normal facial exam Face and sinus: normal facial exam Mouth: Yes Normal oral and palatal mucosa present, Yes lip normal, Yes tongue normal, Yes oropharynx normal, No moist mucous membranes and Yes dry mucous membranes Throat: posterior oropharynx normal and tonsils normal ( erythematous) Eyes: Alignment and Position: alignment normal and position normal P eriorbital: periorbital findings normal Eyelids: eyelids normal C onjunctivae: conjunctivae normal Sclera: sclerae normal Cornea: corneas normal Pupils: Equal, round and reactive pupils present EOM: EOMs intact bilaterally Neck: Neck: normal visual inspection, full ROM and no lymphadenopathy Chest: Chest palpation & inspection: normal inspection of the chest Resp: Effort & Inspection: normal respiratory effort, able to speak in complete sentences, audible wheezes (Minimal and scattered), not labored, no respiratory distress, no retractions, tachypneic and uses accessory muscles A uscultation: clear to auscultation bilaterally, crackles, rhonchi, wheezes and diminished lung sounds Cardio: Jugular venous distension: no JVD Rate: regular rate Rhythm: r egular rhythm Heart sounds: Murmur heart sound present Other: 2/6 systolic ejection GI: Inspection: normal to inspection GI Palp: No abdominal tenderness, No Tenderness to palpation present (GI), No Guarding due to palpation present (GI), No No hepatosplenomegaly present, No Palpable mass present and No Rebound tenderness present Skin: General skin exam: normal color (Skin changes consistent with age and heavy tobacco exposure), no rashes or lesions noted, elasticity normal and turgor normal Neuro: General: patient oriented x3, gait normal, tone normal and moves all extremities Cranial nerves: Yes CN's II-XII intact bilaterally, Yes Equal, round and reactive pupils present and Yes Bilaterally intact EOM present S peech: normal speech Motor exam (neuro): 5/5 motor strength present throughout and Normal motor muscle tone present throughout Sensory Exam: n ormal sensation Extrem: General: normal to inspection, normal exam except as noted and edema Other: 1+ pitting edema in lower extremity Psych: Appearance: grossly normal Mental Status: mental status grossly normal (Very negative) Speech and movement: Normal speech and movement present Affect: normal affect Attitude: cooperative Thought process: N ormal thought process present Course Course Emergency Course: Differential diagnosis includes but is not limited to URI, bronchitis, pneumonia, COPD exacerbation, medication noncompliance, ACS, renal failure, fluid overload, CHF, COVID, influenza She does not currently have a home nebulizer set up which I think would be helpful in her situation. She she also does not pay intention to the positioning of the nasal cannula and I suspect it is not often in the correct place. Workup shows H&H 11.1 and 32.1 [place] [address] CMP is significantly abnormal with a sodium of 126, potassium of 4.2, chloride 91, bicarb is 30, BUN is 6 creatinine is 0.9. Her BNP is normal 242 Influenza is negative COVID is pending cxray no infiltrate or chf EKG shows sinus rhythm, LVH, normal axis, nonspecific ST T-wave abnormality She was treated with a total 4 DuoNebs, 125 of Solu-Medrol, and 500 mL of normal saline Patient had significant improvement in her symptoms, is requesting a home nebulizer machine which I think is appropriate and will contribute to her comfort at home. We also had multiple conversations with her about the importance of keeping the nasal cannula oxygen positioned correctly. Will discharge on prednisone, home nebulizer, I do not think there has been infectious component to it, I think the patient is smoking more than she acknowledges and that is likely the source of her exacerbation. Medical decision making complexity and risk is high Vital Signs Vital signs: Vital Signs Pulse Oximetry 99 04/08/25 10:07 Oxygen Delivery Nasal Cannula 04/08/25 10:07 Oxygen Flow Rate 2 04/08/25 10:07 Temperature 36.6 C 04/08/25 14:13 Pulse Rate 75 04/08/25 14:13 Respiratory Rate 16 04/08/25 14:13 Blood Pressure 121/66 04/08/25 14:13 Pulse Oximetry 100 04/08/25 14:13 Oxygen Delivery Nasal Cannula 04/08/25 14:13 Oxygen Flow Rate 2 04/08/25 14:13 MDM - SOB/Dyspnea Lab Data 04/08/25 10:43 04/08/25 10:43 Labs: Lab Results 04/08/25 04/08/25 Range/Units 10:43 10:43 WBC 10.4 (4.8-10.8) K/mm3 RBC 3.52 L (4.20-5.40) M/mm3 Hgb 11.1 L (11.7-13.8) g/dL Hct 32.1 L (35.0-42.0) % MCV 91.2 (78.0-102.0) fL MCH 31.5 H (27.0-31.0) pg MCHC 34.6 (32-36) g/dL RDW 12.3 (11.6-14.4) % Plt Count 238 (150-420) K/mm3 MPV 9.6 (9.2-11.8) fl Immature Gran % (Auto) 0.4 H (0.0-0.0) % Neut % (Auto) 72.6 H (50.0-70.0) % Lymph % (Auto) 18.1 (18.0-42.0) % [place] % (Auto) 7.9 (2.0-11.0) % Eos % (Auto) 0.6 L (1.0-6.0) % Baso % (Auto) 0.4 (0.0-1.0) % Lymph # (Auto) 1.88 (1.10-4.50) K/mm3 [place] # (Auto) 0.82 (0.10-0.90) K/mm3 Eos # (Auto) 0.06 (0.02-0.50) K/mm3 Baso # (Auto) 0.04 (0.00-0.10) K/mm3 Abs Immat Gran (auto) 0.04 H (0.00-0.00) K/mm3 Absolute Neuts (auto) 7.54 H (1.70-7.20) K/mm3 Absolute Nucleated RBC 0.00 (0.00-0.00) K/mm3 Nucleated RBC % 0.0 (0-0.0) % PT 10.0 (9.50-12.1) Seconds INR 0.9 APTT 29.5 (23.9-30.70) Sec Sodium 126 L (137-145) mmol/L Potassium 4.2 (3.4-5.0) mmol/L Chloride 91 L (98-107) mmol/L Carbon Dioxide 30 (22-30) mmol/L Anion Gap 5 (4-12) mmol/L BUN 6 L (7-17) mg/dL Creatinine 0.92 (0.7-1.0) mg/dL Estim Creat Clear Calc 32 ml/min Estimated GFR 59 (59 - ) Glucose 120 H (65-110) mg/dL Calculated Osmolality 260 L (285-295) mOsm/kg Calcium 9.3 (8.4-10.2) mg/dL Magnesium 1.7 1.7 (1.6-2.3) mg/dL Total Bilirubin 0.6 (0.2-1.3) mg/dL AST 20 (14-36) U/L ALT 12 (6-35) U/L Alkaline Phosphatase 86 (38-126) U/L Troponin I < 0.012 (0.000-0.034) ng/mL NT-Pro-B Natriuret Pep 242 H (19.9-100) pg/mL Total Protein 6.9 (6.3-8.2) g/dL Albumin 3.9 (3.5-5.1) g/dL Influenza A (RT-PCR) Negative (Negative) Influenza B (RT-PCR) Negative (Negative) SARS-CoV-2 RNA (RT-PCR) Negative (Negative) Discharge Plan Discharge Clinical Impression: Continuous tobacco abuse, Acute hyponatremia COPD (chronic obstructive pulmonary disease) Qualifiers: COPD type: COPD with acute exacerbation Qualified Code(s): J44.1 - Chronic obstructive pulmonary disease with (acute) exacerbation Patient Disposition: Home Condition: Stable Instructions: How to Stop Smoking (ED), Hyponatremia (ED), COPD (Chronic Obstructive Pulmonary Disease) (ED) Additional Instructions: It is critical to stop smoking Pay attention to how your nasal cannula prongs are positioned in your nose at all times. While you are in the emergency department for frequently had them miss positioned. Make sure and keep them in your nose at all times May use your albuterol nebulizer every 3-4 hours as needed Take prednisone as directed Follow-up with your doctor in 3-10 days as needed Return to the emergency department if worsens Patient Language: Macedonian Prescriptions: New (DME) [facility] Neb Kit-Adult Misc See Rx Instructions .Route Qty: 1 0RF Rx Instructions: As directed albuterol sulfate 2.5 mg /3 mL (0.083 %) solution for nebulization 2.5 mg inhalation Q3-4H PRN (Reason: Of shortness of breath) Qty: 375 0RF Rx Instructions: Dispense as 2.5 mg albuterol in 3 mL normal saline ampules No Action pantoprazole 20 mg tablet,delayed release (DR/EC) 20 mg PO DAILY ipratropium-albuterol 0.5 mg-3 mg(2.5 mg base)/3 mL solution for nebulization 3 ml inhalation Q6H PRN (Reason: shortness of breath or wheezing) Qty: 90 0RF Trelegy Ellipta 200-62.5-25 mcg blister with device 1 inh inhalation DAILY atorvastatin 20 mg tablet 20 mg PO QHS alprazolam 0.5 mg tablet 0.5 mg PO BID PRN (Reason: Anxiety) Qty: 60 0RF Follow-up/Referrals: UNKNOWN,DOCTOR [Non-Staff] Time of Disposition: 13:46
--- NOTE | 2025-04-08 10:32 | ECG_ITS ---
Test Date: 2025-04-08 10:44:23 Measurements Intervals [place] Rate: 69 P: 65 [place]: 164 QRS: 68 QRSD: 89 T: 55 QT: 403 QTc: 434 Interpretive Statements SINUS RHYTHM VOLTAGE CRITERIA FOR LVH MINIMAL Q WAVES- ANTEROLAT/INF LEADS BASELINE WANDER- I, II, III, AVR, AVL, AVF, V1-V3 BORDERLINE ECG No previous ECG available for comparison Electronically Signed On 04-08-2025 11:07:40 CDT by Kailash Goldberg D.O.
[2025-04-08 10:48] LABS: Hematocrit 32.1 % (35.0-42.0); Hemoglobin 11.1 g/dL (11.7-13.8); Immature Granulocyte Percent A 0.4 % (0.0-0.0); Lymphocytes Absolute Auto 1.88 K/mm3 (1.10-4.50); Mean Corpuscular HGB Conc 34.6 g/dL (32-36); Mean Corpuscular Hemoglobin 31.5 pg (27.0-31.0); Mean Corpuscular Volume 91.2 fL (78.0-102.0); Nucleated Red Blood Cells Absolute Auto 0.00 K/mm3 (0.00-0.00); Nucleated Red Blood Cells Perc 0.0 % (0-0.0); Platelet Count Result 238 K/mm3 (150-420); Red Blood Count 3.52 M/mm3 (4.20-5.40); White Blood Count 10.4 K/mm3 (4.8-10.8)
[2025-04-08] MEDS: IPRATROPIUM 0.5 MG/ALBUTEROL SULFATE 2.5 MG (BASE) AMPUL.NEB 3 ML INHALATION (10:55)
[2025-04-08 11:02] LABS: Alanine Aminotransferase 12 U/L (6-35); Albumin Level 3.9 g/dL (3.5-5.1); Alkaline Phosphatase 86 U/L (38-126); Anion Gap 5 mmol/L (4-12); Aspartate Amino Transferase 20 U/L (14-36); Bilirubin,Total 0.6 mg/dL (0.2-1.3); Blood Urea Nitrogen 6 mg/dL (7-17); Calcium 9.3 mg/dL (8.4-10.2); Carbon Dioxide 30 mmol/L (22-30); Chloride 91 mmol/L (98-107); Estimated CRCL calculation 32 ml/min; Estimated Glomerular Filt Rate 59; Glucose 120 mg/dL (65-110); Magnesium 1.7 mg/dL (1.6-2.3); Osmolality Calculated 260 mOsm/kg (285-295); Potassium 4.2 mmol/L (3.4-5.0); Sodium 126 mmol/L (137-145); Total Protein 6.9 g/dL (6.3-8.2)
[2025-04-08 11:03] LABS: INR 0.9; Partial Thromboplastin Time 29.5 Sec (23.9-30.70); Prothrombin Time 10.0 Seconds (9.50-12.1)
[2025-04-08 11:14] LABS: NT Pro B Type Natriuretic Pept 242 pg/mL (19.9-100); Troponin I < 0.012 ng/mL (0.000-0.034)
[2025-04-08 11:24] LABS: Influenza A QL RT-PCR Negative (Negative); Influenza B QL RT-PCR Negative (Negative)
[2025-04-08 12:40] LABS: SARS-CoV-2 RNA PCR Negative (Negative)
[2025-04-08] MEDS: SODIUM CHLORIDE 0.9% IV 500 ML 999 ML IV CONT (13:08)
== END 2025-04-08 14:13 | disposition home or self-care (01) ==
PROVIDERS: Emergency Provider Emergency Medicine; PCP Family Medicine
DX: E87.1 Hypo-osmolality and hyponatremia (principal); J44.1 Chronic obstructive pulmonary disease with (acute) exacerbation; E78.5 Hyperlipidemia, unspecified; I10 Essential (primary) hypertension; F17.210 Nicotine dependence, cigarettes, uncomplicated; Z99.81 Dependence on supplemental oxygen; Z20.822 Contact with and (suspected) exposure to COVID-19
CPT/HCPCS: 36415; 71045; 80053; 83735; 83880; 84484; 85025; 85610; 85730; 87502; 87635; 93005; 94640; 96374; 99284; J2919; J7040

== ENCOUNTER 2025-04-30 12:18 | Outpatient (CLI) | payer MEDICARE, SELFPAY ==
[2025-04-30 12:33] LABS: Hematocrit 33.3 % (35.0-42.0); Hemoglobin 11.5 g/dL (11.7-13.8); Immature Granulocyte Percent A 0.4 % (0.0-0.0); Lymphocytes Absolute Auto 2.48 K/mm3 (1.10-4.50); Mean Corpuscular HGB Conc 34.5 g/dL (32-36); Mean Corpuscular Hemoglobin 32.5 pg (27.0-31.0); Mean Corpuscular Volume 94.1 fL (78.0-102.0); Nucleated Red Blood Cells Absolute Auto 0.00 K/mm3 (0.00-0.00); Nucleated Red Blood Cells Perc 0.0 % (0-0.0); Platelet Count Result 299 K/mm3 (150-420); Red Blood Count 3.54 M/mm3 (4.20-5.40); White Blood Count 12.4 K/mm3 (4.8-10.8)
[2025-04-30 13:33] LABS: Hemoglobin A1C 6.0 % (<5.7)
[2025-04-30 13:52] LABS: Alanine Aminotransferase 16 U/L (6-35); Albumin Level 4.4 g/dL (3.5-5.1); Alkaline Phosphatase 98 U/L (38-126); Anion Gap 6 mmol/L (4-12); Aspartate Amino Transferase 23 U/L (14-36); Bilirubin,Total 1.5 mg/dL (0.2-1.3); Blood Urea Nitrogen 10 mg/dL (7-17); Calcium 9.5 mg/dL (8.4-10.2); Carbon Dioxide 29 mmol/L (22-30); Chloride 100 mmol/L (98-107); Cholesterol 184 mg/dL (0-200); Estimated Glomerular Filt Rate > 60; Glucose 113 mg/dL (65-110); HDL Direct 54 mg/dL; Osmolality Calculated 280 mOsm/kg (285-295); Potassium 4.4 mmol/L (3.4-5.0); Sodium 135 mmol/L (137-145); Total Protein 6.7 g/dL (6.3-8.2); Triglycerides 175 mg/dL (<150)
[2025-04-30 14:22] LABS: Thyroid Stimulating Hormone Reflex 1.570 uIU/mL (0.465-4.68)
== END 2025-04-30 12:19 | disposition home or self-care (01) ==
LOC: CHSLAB 12:22
PROVIDERS: PCP Nurse Practitioner Family; Visit Provider Nurse Practitioner Family
DX: J44.1 Chronic obstructive pulmonary disease with (acute) exacerbation (principal); E78.5 Hyperlipidemia, unspecified; I10 Essential (primary) hypertension; Z13.1 Encounter for screening for diabetes mellitus
CPT/HCPCS: 36415; 80053; 80061; 83036; 84443; 85025